=== PATIENT | female | born 1990 | race Two or more races ===

== ENCOUNTER 2021-11-28 19:22 | Emergency (ER) | payer MEDICAID ==
[~2021-11-28] VITALS: Ht 167.6 cm; Wt 105.0 kg
[2021-11-28] MEDS ORDERED: DIPHENHYDRAMINE 50MG/ML VIAL IV ONE (19:30)
[2021-11-28] MEDS ORDERED: METHYLPREDNISOLONE SOD SUCC 125 MG/2 ML VIAL IV ONE (19:30)
[2021-11-28] MEDS ORDERED: HYDROCODONE/ACETAMINOPHEN 10/325MG TABLET PO ONE (21:30)
[2021-11-28 22:00] VITALS: BP 126/79
[2021-11-28] MEDS ORDERED: EPIN0.3P3 IM (22:08)
== END 2021-11-28 23:01 | disposition home or self-care (01) ==
LOC: ER 19:22
DX: T78.00XA Anaphylactic reaction due to unspecified food, initial encounter (principal)
CPT/HCPCS: 96374; 96375; 99284; J1200; J2930